=== PATIENT | female | born 2000 | race Caucasian/White ===

== ENCOUNTER 2020-02-08 21:42 | Emergency (ER) | payer MEDICAID ==
[2020-02-08] MEDS ORDERED: ONDANSETRON HCL INJ/PF 4 MG/2 ML SDV IV ONE (22:44)
[2020-02-08] MEDS ORDERED: NORMAL SALINE 1000 ML 1,000 ML IV ONE (22:44)
[2020-02-08] MEDS ORDERED: KETOROLAC TROMETHAMINE INJ/PF 30 MG/1 ML SDV IV ONE (22:44)
[2020-02-08] MEDS ORDERED: DIPHENHYDRAMINE HCL 50 MG/ML VIAL IV ONE (22:44)
--- NOTE | 2020-02-08 22:45 | ER Document Report ---
ED Medical Screen (RME) - General Chief Complaint: Headache <24 hrs old Stated Complaint: MIGRAINE X1 DAY Time Seen by Provider: 02/08/20 22:42 Mode of Arrival: Ambulatory Information source: Patient Notes: 19-year-old female patient with history of migraines reports complaints of migraine that began this morning. Mother reports she has taken her migraine medications throughout the day and has not helped, she is actively vomiting. Mom reports she has been vomiting all day. Patient does report this feels similar to her usual migraines, has not had fever, chills or neck pain. Patient actively vomiting in triage room. I have greeted and performed a rapid initial assessment of this patient. A comprehensive ED assessment and evaluation of the patient, analysis of test results and completion of the medical decision making process will be conducted by additional ED providers. I have specifically instructed the patient or family members with the patient to immediately return to any nursing staff should anything change in the patient's condition or with their chief complaint. Physical Exam - Vital signs Vitals: Temp Pulse Resp BP Pulse Ox 98.6 F 74 22 129/71 H 99 02/08/20 22:18 02/08/20 22:18 02/08/20 22:18 02/08/20 22:18 02/08/20 22:18 Course - Vital Signs Vital signs: Temp Pulse Resp BP Pulse Ox 98.6 F 74 22 129/71 H 99 02/08/20 22:18 02/08/20 22:18 02/08/20 22:18 02/08/20 22:18 02/08/20 22:18
--- NOTE | 2020-02-08 23:35 | ER Document Report ---
HPI - HPI Time Seen by Provider: 02/08/20 22:42 Pain Level: 5 Notes: 19-year-old female patient with history of migraines reports complaints of migraine that began this morning. Mother reports she has taken her migraine medications throughout the day and has not helped, she is actively vomiting. Mom reports she has been vomiting all day. Patient does report this feels similar to her usual migraines, has not had fever, chills or neck pain. - ROS Systems Reviewed and Negative: Yes All other systems reviewed and negative - NEURO Neurology: REPORTS: Headache - GASTROINTESTINAL Gastrointestinal: REPORTS: Nausea, Patient vomiting - REPRODUCTIVE LMP: 01/22/20 Reproductive: DENIES: : Past Medical History - General Information source: Patient - Social History Smoking Status: Current Every Day Smoker Family History: None Neurological Medical History: Reports: Hx Migraine Surgical Hx: Negative Vertical Provider Document - CONSTITUTIONAL Notes: PHYSICAL EXAMINATION: GENERAL: Well-appearing, well-nourished and actively vomiting in triage. HEAD: Atraumatic, normocephalic. EYES: Pupils equal round extraocular movements intact, conjunctiva are normal. ENT: Nares patent NECK: Normal range of motion LUNGS: No respiratory distress Musculoskeletal: Normal range of motion NEUROLOGICAL: Normal speech, normal gait. PSYCH: Normal mood, normal affect. SKIN: Warm, Dry, normal turgor, no rashes or lesions noted. Course - Re-evaluation Re-evalutation: Presentation of a headache that appears to be most consistent with tension versus migrainous type headache. Headache was not maximal in onset, patient has no focal neurologic deficits, no nuchal rigidity, vital signs within normal limits, no papilledema, and patient is overall well in appearance. Based on clinical history and examination I do not suspect an acute subarachnoid hemorrhage, dural venous sinus thrombosis, acute meningitis, or intercranial mass. Given my low clinical suspicion for any acute life-threatening etiology, I do not feel advanced neuro imaging or laboratory testing is indicated at this time. Will proceed with headache cocktail and reassess. Patient's headache completely resolved within 45 minutes of migraine cocktail. She will be discharged home at this time. - Vital Signs Vital signs: Temp Pulse Resp BP Pulse Ox 98.6 F 74 22 129/71 H 99 02/08/20 22:18 02/08/20 22:18 02/08/20 22:18 02/08/20 22:18 02/08/20 22:18 Discharge - Discharge Clinical Impression: Migraine Qualifiers: Migraine type: unspecified Status migrainosus presence: without status migrainosus Intractability: not intractable Qualified Code(s): G43.909 - Migraine, unspecified, not intractable, without status migrainosus Condition: Stable Disposition: HOME, SELF-CARE Additional Instructions: You were seen today for a migraine headache. Please follow-up with your primary care doctor regarding today's ED visit. Return to emergency department immediately if you develop a headache that gets to its maximum severity within 20 minutes of onset, you pass out, you develop weakness, numbness, changes in your vision, become unable to keep any fluids down for more than 12 hours, or develop a fever greater than 100.4 degrees Fahrenheit. If you develop a similar migraine headache in the future I recommend that you immediately take 800 mg of ibuprofen and 50 mg of Benadryl and go to sleep as quickly as possible. This can often prevent your migraine headache from becoming severe. If your headache has not significantly improved take 1-2 tablets of the Fioricet. Prescriptions: Butalb/Acetaminophen/Caffeine [Fioricet (50-325-40 mg) Tablet] 1 - 2 tab PO Q4HP PRN #20 tab PRN Reason: Ondansetron [Zofran Odt 4 mg Tablet] 1 - 2 tab PO Q6HP PRN #20 tab.rapdis PRN Reason: For Nausea/Vomiting Forms: Return to Work Referrals: CELESTINO SOTO MD [COMMUNITY BASED STAFF] - Follow up as needed
[2020-02-08 23:43] VITALS: BP 117/69
== END 2020-02-08 23:45 | disposition home or self-care (01) ==
LOC: ER 21:42
DX: G43.909 Migraine, unspecified, not intractable, without status migrainosus (principal); R11.2 Nausea with vomiting, unspecified; F17.200 Nicotine dependence, unspecified, uncomplicated
CPT/HCPCS: 99284; 96361; 96374; 96375; J1200; J1885; J2405; J7030